=== PATIENT | male | born 1945 | race Caucasian/White ===

== ENCOUNTER → 2020-07-14 | Day surgery (SDC) | payer OTHER ==
[~2020-07-14] VITALS: Ht 165.1 cm; Wt 86.2 kg
[~2020-07-14] MED LIST: ACET325T9 PO; ASCO500C9 PO; BACITRACIN 50,000 UNIT in IV NORMAL SALINE 500ML BAG 500 ML IRR ONE; BUPIVACAINE-EPI 0.5%-1:200000 MPF 30 ML VIAL. INJ ONE; CHLORHEXIDINE 0.12% 15 ML MOUTHWASH. ONE; DEXAMETHASONE SOD PHOS 4 MG/ML VIAL ONE; DULO60CA6 PO; FERR325T14 PO; GELATIN SPONGE SIZE 100. ONE; GELATIN SPONGE SIZE 12-7MM SPONGE. ONE; HYDR-2761 PO; HYDROcodone/APAP 5/325MG 1 TAB TABLET PO ONE; HYDROmorphone 2 MG/ML VIAL IV PRN; IV RINGERS,LACTATED 1000ML 1,000 ML IV SCH; LEVO150T5 PO; LIDOCAINE 1% PF 2 ML VIAL. ID PRN; LIDOCAINE 2% PF 5 ML VIAL. ONE; MIRT30TA3 PO; MORPHINE SULFATE 2 MG/ML VIAL. IV PRN; ONDANSETRON PF 4 MG/2 ML VIAL. ONE; PANT20TA2 PO; PEG15DRO4 OD; PHENYLEPHRINE in 0.9% NACL PF 1 MG/10 ML SYRINGE. IV ONE; PROCHLORPERAZINE 10 MG/2 ML VIAL. IV PRN; PROPOFOL 10 MG/ML (20ML) VIAL. IV ONE; ROCURONIUM 50 MG/5 ML VIAL. ONE; SUCR1TAB PO; TAMS0.4C97 PO; TRAZ-118 PO; VASOPRESSIN 20 UNIT/ML VIAL. ONE; ZIPR40CA2 PO; ePHEDrine PF IN SALINE 50 MG/10 ML SYRINGE. IV ONE; fentaNYL PF VIAL 100 MCG/2 ML VIAL IV PRN; fentaNYL PF VIAL 100 MCG/2 ML VIAL ONE
--- NOTE | 2020-07-14 14:13 | PDOC4 ---
OPERATIVE NOTE Date: Date: Jul 14, 2020 Pre-Op Diagnosis: CAD DM HTN Carious non restorable teeth # 2, 12,13,15,23,24,25,26,30 Failing, Non restorable implants # $, 6, 11, 20, 21, 28 bilateral mandibular cameron Post-Op Diagnosis: same Procedure Performed: Surgical removal of Carious non restorable teeth # 2, 12,13,15,23,24,25,26,30 Failing, Non restorable implants # $, 6, 11, 20, 21, 28 Alveoloplasty in all four quadrants UR, UL, LL, LR bilateral mandibular cameron Surgeon: devang Anesthesia Type: mcnitt Blood Loss: 50 Specimans Obtained: none teeth and implants disposed of in OR Findings: Carious non restorable teeth # 2, 12,13,15,23,24,25,26,30 Failing, Non restorable implants # $, 6, 11, 20, 21, 28 Alveoloplasty in all four quadrants UR, UL, LL, LR bilateral mandibular cameron Complications: none Operative Note: see dictation Surgical removal of Carious non restorable teeth # 2, 12,13,15,23,24,25,26,30 Failing, Non restorable implants # $, 6, 11, 20, 21, 28 Alveoloplasty in all four quadrants UR, UL, LL, LR bilateral mandibular cameron RAVI CABRALES DMD Jul 14, 2020 14:13
--- NOTE | 2020-07-14 14:43 | OP ---
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 ATTENDING PHYSICIAN: Wesley Cabrales DMD PREOPERATIVE DIAGNOSES: Asthma; hypothyroidism; diabetes; chronic obstructive pulmonary disease; hypertension and caries of nonrestorable teeth and implants, teeth numbers 2, 12, 13, 15, 23, 24, 25, 26 and 30 and failing implants numbers 4, 6, 11, 20, 21 and 28 and he has bilateral mandibular cameron. POSTOPERATIVE DIAGNOSES: Asthma; hypothyroidism; diabetes; chronic obstructive pulmonary disease; hypertension and caries of nonrestorable teeth and implants, teeth numbers 2, 12, 13, 15, 23, 24, 25, 26 and 30 and failing implants numbers 4, 6, 11, 20, 21 and 28 and he has bilateral mandibular cameron. PROCEDURES PERFORMED: Removal of all aforementioned teeth and implants, teeth numbers 2, 12, 13, 15, 23, 24, 25, 26, 30 and failing implants 4, 6, 11, 20, 21 and 28 and alveoloplasty 4 quadrants upper right, upper left, lower right, lower left and surgical removal of bilateral mandibular cameron. BRIEF HISTORY: The patient is a 74-year-old gentleman who was sent to our clinic by the [place] for removal of all remaining failing dentition and failing implants. History and physical was performed and permit was obtained due to the patient's multiple comorbidities in the setting of care was escalated to the OR. DRAINS PLACED: None. SPECIMEN SENT: None. Teeth and implants were disposed off in the OR. COMPLICATIONS: None noted at the time of surgery. ESTIMATED BLOOD LOSS: Approximately 50 mL. OPERATIVE DESCRIPTION: After the history and physical was updated in the preoperative holding area, the patient was transported by the Anesthesia Service to the operating suite, placed in the supine position. General anesthesia was induced. The patient was then intubated with an oral intubation, secured to the upper left face without complication. The surgical timeout was performed. A moistened throat pack was placed. Oral cavity was lavaged. The patient was then prepped and draped in normal sterile fashion. A surgical timeout was initiated and all perioperative staff was in agreeance. Surgery began with administration of approximately 20 mL of 0.5% Marcaine, 1:200,000 epinephrine, an additional 5 mL were administered at the culmination of the procedure. A #15 blade was utilized to create a full thickness mucoperiosteal flap. This was reflected buccally in all 4 quadrants and lingually in the lower right and lower left quadrants. The periosteal and [place] elevators were utilized to reflect these flaps. The teeth were then were luxated, elevated and extracted without complication. Teeth numbers 2, 12, 13, 15, 23, 24, 25, 26 and 30 with rotary instrumentation and hand instruments without complication. The failing implants were removed with hand instruments and rotary instrumentation as needed with copious normal sterile saline. Alveoloplasty was performed in all 4 quadrants with all bony undercuts being removed with rongeur, bone file and curettage and copious normal sterile saline. The mandibular cameron were then removed with rotary instrumentation with copious normal sterile saline irrigation. The full thickness mucoperiosteal flaps were then reflected and lavaged under each flap thoroughly and Gelfoam was placed in extraction sites and oversewn with 3-0 chromic gut sutures in a running locked fashion. At the culmination of the procedure, the oral cavity was then lavaged and suctioned. The moistened throat pack was removed. An OG was passed and the stomach was decompressed. The patient was then returned to the care of Anesthesia where he was awakened and extubated without complication and transported to the PACU in stable condition. WESLEY CABRALES DMD DR: Juan Antonio JOB#: [id number] / [id number]
[2020-07-14 16:30] VITALS: BP 127/65
== END ==
LOC: SURG 09:25
PROVIDERS: ATTEND Dentist Oral and Maxillofacial Surgery
DX: K02.9 Dental caries, unspecified (principal); F43.0 Acute stress reaction; I25.10 Atherosclerotic heart disease of native coronary artery without angina pectoris; I10 Essential (primary) hypertension; E11.9 Type 2 diabetes mellitus without complications; J44.9 Chronic obstructive pulmonary disease, unspecified; E03.9 Hypothyroidism, unspecified; F17.210 Nicotine dependence, cigarettes, uncomplicated; Z79.899 Other long term (current) drug therapy
CPT/HCPCS: 41899; A7015; J0690; J1100; J2370; J2405; J2704; J3010; J3490; J7040; J7120

== ENCOUNTER 2021-08-16 03:55 | Inpatient (IN) | payer OTHER ==
[~2021-08-16] VITALS: Ht 167.6 cm; Wt 77.2 kg
[~2021-08-16 03:55] MED LIST changes: -BACITRACIN 50,000 UNIT in IV NORMAL SALINE 500ML BAG 500 ML IRR ONE; -BUPIVACAINE-EPI 0.5%-1:200000 MPF 30 ML VIAL. INJ ONE; -CHLORHEXIDINE 0.12% 15 ML MOUTHWASH. ONE; -DEXAMETHASONE SOD PHOS 4 MG/ML VIAL ONE; -DULO60CA6 PO; +DULO60CA7 PO; -GELATIN SPONGE SIZE 100. ONE; -GELATIN SPONGE SIZE 12-7MM SPONGE. ONE; -HYDROcodone/APAP 5/325MG 1 TAB TABLET PO ONE; -HYDROmorphone 2 MG/ML VIAL IV PRN; -IV RINGERS,LACTATED 1000ML 1,000 ML IV SCH; -LIDOCAINE 1% PF 2 ML VIAL. ID PRN; -LIDOCAINE 2% PF 5 ML VIAL. ONE; +MIRT-8 PO; -MIRT30TA3 PO; -MORPHINE SULFATE 2 MG/ML VIAL. IV PRN; -ONDANSETRON PF 4 MG/2 ML VIAL. ONE; -PHENYLEPHRINE in 0.9% NACL PF 1 MG/10 ML SYRINGE. IV ONE; -PROCHLORPERAZINE 10 MG/2 ML VIAL. IV PRN; -PROPOFOL 10 MG/ML (20ML) VIAL. IV ONE; -ROCURONIUM 50 MG/5 ML VIAL. ONE; -VASOPRESSIN 20 UNIT/ML VIAL. ONE; -ePHEDrine PF IN SALINE 50 MG/10 ML SYRINGE. IV ONE; -fentaNYL PF VIAL 100 MCG/2 ML VIAL IV PRN; -fentaNYL PF VIAL 100 MCG/2 ML VIAL ONE
[2021-08-16 03:56] VITALS: BP 122/69
[2021-08-16] MEDS ORDERED: [UNRECOGNIZED DRUG - OTHER] PR (04:31)
[2021-08-16] MEDS ORDERED: BISA10SU4 PO (04:31)
[2021-08-16] MEDS ORDERED: CEPH500T PO (04:31)
[2021-08-16] MEDS ORDERED: LEVO125T PO (04:31)
[2021-08-16] MEDS ORDERED: LOPE2TAB27 PO (04:31)
[2021-08-16] MEDS ORDERED: GUAI237L83 PO (04:31)
[2021-08-16] MEDS ORDERED: MAGN400O7 PO (04:31)
[2021-08-16] MEDS ORDERED: ONDANSETRON PF 4 MG/2 ML VIAL. IV PRN (05:30)
[2021-08-16] MEDS ORDERED: ACETAMINOPHEN 325 MG SUPP.RECT. PR PRN (05:30)
[2021-08-16] MEDS ORDERED: MORPHINE SULFATE 2 MG/ML INJ. IVP PRN (05:30)
[2021-08-16] MEDS ORDERED: OLANZapine IM 10 MG VIAL. IM ONE (05:30)
[2021-08-16] MEDS: PANTOPRAZOLE SODIUM IV DRIP 80 MG in IV NORMAL SALINE 100ML 100 ML IV SCH ×2 (05:51→14:54)
[2021-08-16] MEDS: IV RINGERS,LACTATED 1000ML 1,000 ML IV SCH ×2 (05:52→20:37)
[2021-08-16 06:22] VITALS: BP 122/65
--- NOTE | 2021-08-16 06:38 | NUR ---
Pharmacy Medication Review S: Consulted for medication review re: C.diff Risk Assessment score of 5 O: RANDALL PLUMMER is a 76 year old with: Previous C.diff infection: No Previous hospitalization: Within 60 days Recent antibiotics: Within 30 days Use of gastric acid suppressor: No Transfer from [place]/[facility]: Yes Current antibiotic regimen: NONE Current acid suppression regimen: PPI GTT A: Patient has been identified as having risk factors for C.diff infection as noted above. P: ABX DE-ESCALATION RECOMMENDED: NO ANTIBIOTIC PROBIOTIC ORDERED: N/A PPI CHANGED TO [id number]: PT HAS GI BLEED, ON PPI GTT [facility], 08/16/21 [id number]
[2021-08-16] MEDS ORDERED: C.DIFF MED SCREEN BY RX. MC ONE (06:45)
--- NOTE | 2021-08-16 08:25 | PDOC1 ---
History and Physical Date of Admission Date of Admission DATE: 08/16/21 TIME: 08:22 Source Source: Chart review, Patient History of Present Illness History of Present Illness Mr. Salazar transferred here from [facility] for vomting blood. He was recently admit there 07/22 for same, DC after one day. Yestery, he had copious amount of vomiting, but one large blood vomting, better this AM hgb 9.2 there before DC, transfer here on PPI drip. Past Medical History Cardiovascular: HTN GI: GERD, GI bleed Psych: Bipolar, Depression, Other Renal/: No pertinent hx Past Surgical History Past Surgical History: No pertinent history Family History Family History: No Significant, Other Social History Smoke: No ALCOHOL: rare Drugs: None Current Medications Current Medications Current Medications Ondansetron HCl (Zofran) 4 mg PRN Q6HRS PRN IV NAUSEA/VOMITING; Start 08/16/21 at 05:30 Olanzapine (ZyPREXA IM) 2.5 mg 1X ONCE IM Last administered on 08/16/21at 05:49; Start 08/16/21 at 05:30; Stop 08/16/21 at 05:34; Status DC Morphine Sulfate (Morphine Sulfate) 2 mg PRN Q3HRS PRN IVP PAIN; Start at 05:30 Acetaminophen (Tylenol Supp) 325 mg PRN Q6HRS PRN MS MILD PAIN / TEMP > 100.3'F; Start 08/16/21 at 05:30 Pantoprazole Sodium 80 mg/ Sodium Chloride 100 ml @ 10 mls/hr Q10H IV Last administered on 08/16/21at 05:51; Start 08/16/21 at 05:30 Ringer's Solution 1,000 ml @ 75 mls/hr [id number] IV Last administered on 08/16/21at 05:52; Start 08/16/21 at 05:30 Pharmacy Consult (C.diff Med Screen By Rx) 1 each 1X ONCE MC ; Start 08/16/21 at 06:45; Stop 08/16/21 at 06:46; Status Cancel Active Scripts Active Reported Robitussin Cough-Chest Dm Liq (Guaifenesin/Dextromethorphan) 237 Ml Liquid 237 Ml PO PRN Q4HRS PRN [Phosphate Enema] MS PRN DAILY PRN Milk Of Magnesia (Magnesium Hydroxide) 400 Mg/5 Ml Oral.susp 400 Mg PO PRN DAILY PRN Loperamide (Loperamide Hcl) 2 Mg Tablet 1 Tab PO Q4HRS 30 Days Bisacodyl 10 Mg Supp.rect 30 Ml PO PRN DAILY PRN Cephalexin 500 Mg Tablet 1,000 Mg PO BID Synthroid (Levothyroxine Sodium) 125 Mcg Tablet 1 Tab PO DAILY Vitamin C (Ascorbic Acid) 500 Mg Capsule 1,000 Mg PO DAILY Tylenol (Acetaminophen) 325 Mg Tablet 650 Mg PO PRN Q4-6HRS PRN Trazodone Hcl 50 Mg Tablet 25 Mg PO HS Flomax (Tamsulosin Hcl) 0.4 Mg Cap.er.24h 0.8 Mg PO DAILY Sucralfate 1 Gm Tablet 1 Gm PO TID Protonix (Pantoprazole Sodium) 20 Mg Tablet.dr 40 Mg PO BID Mirtazapine 30 Mg Tablet 1 Tab PO QHS Geodon (Ziprasidone Hcl) 40 Mg Capsule 60 Mg PO BID Ferrous Sulfate 325 Mg Tablet 325 Mg PO DAILY Cymbalta (Duloxetine Hcl) 60 Mg Capsule.dr 60 Mg PO DAILY Artificial Tears Drops (Peg 400/Hypromellose/Glycerin) 15 Ml Drops 1 Drop OD QID 30 Days Allergies Allergies: Coded Allergies: hydrochlorothiazide (Verified Allergy, Unknown, 08/16/21) ROS General: No: Chills, Night Sweats, Fatigue, Malaise, Appetite, Other PSYCHOLOGICAL ROS: No: Anxiety, Behavioral Disorder, Concentration difficultie, Decreased libido, Depression, Disorientation, Hallucinations, Hostility, Irritablity, Memory difficulties, Mood Swings, Obsessive thoughts, Physical abuse, Sexual abuse, Sleep disturbances, Suicidal ideation, Other Eyes: No Blurry vision, No Decreased vision, No Double vision, No Dry eyes, No Excessive tearing, No Eye Pain, No Itchy Eyes, No Loss of vision, No Photophobia, No Scotomata, No Uses contacts, No Uses glasses, No Other HEENT: No: Heacaches, Visual Changes, Hearing change, Nasal congestion, Nasal discharge, Oral lesions, Sinus pain, Sore Throat, Epistaxis, Sneezing, Snoring, Tinnitus, Vertigo, Vocal changes, Other Respiratory: No: Cough, Hemoptysis, Orthopnea, Pleuritic Pain, Shortness of breath, SOB with excertion, Sputum Changes, Stridor, Tachypnea, Wheezing, Other Cardiovascular: No Chest Pain, No Palpitations, No Orthopnea, No Paroxysmal Noc. Dyspnea, No Edema, No Lt Headedness, No Other Gastrointestinal: Yes Nausea, Yes Abdominal Pain, Yes Other (hematemesiss) Genitourinary: No Dysuria, No Frequency, No Incontinence, No Hematuria, No Retention, No Discharge, No Urgency, No Pain, No Flank Pain, No Other, No , No , No , No , No , No , No Musculoskeletal: No Gait Disturbance, No Joint Pain, No Joint Stiffness, No Joint Swelling, No Muscle Pain, No Muscular Weakness, No Pain In:, No Swelling In:, No Other Neurological: No Behavorial Changes, No Bowel/Bladder ControlChng, No Confusion, No Dizziness, No Headaches, No Impaired Coord/balance, No Memory Loss, No Numbness/Tingling, No Seizures, No Speech Problems, No Tremors, No Visual Changes, No Weakness, No Other Skin: Yes Dry Skin; No Eczema, No Hair Changes, No Lumps, No Mole Changes, No Mottling, No Nail Changes, No Pruritus, No Rash, No Skin Lesion Changes, No Other, No Acne Physical Exam General: Alert, Cooperative, No acute distress, Other (oriented 3.4, ) Lungs: Clear to auscultation Heart: S1S2 Extremities: No edema, Normal pulses Skin: No rashes Neuro: Normal tone Psych/Mental Status: Mood NL Vitals Vitals Vital Signs Date Time Temp Pulse Resp B/P (MAP) Pulse Ox O2 Delivery O2 Flow Rate FiO2 08/16/21 06:35 Room Air 08/16/21 06:22 98.4 100 18 122/65 (84) 94 98.4 VTE Prophylaxis Ordered VTE Prophylaxis Devices: No VTE Pharmacological Prophylaxi: Contraindicated Assessment/Plan Assessment/Plan acute blood loss anemia upper GI bleed bipolar disorder, cogntive decline, depression and anxiety care home resident full code Justifications for Admission Other Justification BERNARD BUSBY MD Aug 16, 2021 08:25
[2021-08-16 09:00] LABS: BASO # 0.1 x10^3/uL (0.0-0.2); BASO % 1 % (0-3); EOS # 0.1 x10^3/uL (0.0-0.7); EOS % 1 % (0-3); HEMOGLOBIN 8.8 g/dL (13.0-17.5); LYMPH # 1.4 x10^3/uL (1.0-4.8); LYMPH % 11 % (24-48); MEAN CORPUSCULAR HEMOGLOBIN 30 pg (25-35); MEAN CORPUSCULAR HGB CONC 33 g/dL (31-37); MEAN CORPUSCULAR VOLUME 93 fL (79-100); MONO # 0.6 x10^3/uL (0.0-1.1); MONO % 4 % (0-9); NEUT # 11.1 x10^3/uL (1.8-7.7); NEUT % 84 % (31-73); PLATELET COUNT 341 x10^3/uL (140-400); RED BLOOD COUNT 2.92 x10^6/uL (4.30-5.70); RED CELL DISTRIBUTION WIDTH 14.1 % (11.5-14.5); WHITE BLOOD COUNT 13.3 x10^3/uL (4.0-11.0)
[2021-08-16] MEDS ORDERED: FERROUS SULFATE 325 MG TABLET. PO SCH (09:00)
[2021-08-16 11:00] VITALS: BP 119/63
--- NOTE | 2021-08-16 12:11 | PDOC2 ---
CONSULT Date of Consult Date of Consult DATE: 08/16/21 TIME: 12:03 Reason for Consult Reason for Consult: Acute blood loss anemia/Hematemesis Past Medical History Cardiovascular: HTN GI: GERD, GI bleed Psych: Bipolar, Depression, Other Renal/: No pertinent hx Past Surgical History Past Surgical History: No pertinent history Family History Family History: No Significant, Other Social History No ALCOHOL: rare Drugs: None Current Medications Current Medications Current Medications Ondansetron HCl (Zofran) 4 mg PRN Q6HRS PRN IV NAUSEA/VOMITING; Start 08/16/21 at 05:30 Olanzapine (ZyPREXA IM) 2.5 mg 1X ONCE IM Last administered on 08/16/21at 05:4 9; Start 08/16/21 at 05:30; Stop 08/16/21 at 05:34; Status DC Morphine Sulfate (Morphine Sulfate) 2 mg PRN Q3HRS PRN IVP PAIN; Start 08/16/21 at 05:30 Acetaminophen (Tylenol Supp) 325 mg PRN Q6HRS PRN MD MILD PAIN / TEMP > 100.3'F; Start 08/16/21 at 05:30 Pantoprazole Sodium 80 mg/ Sodium Chloride 100 ml @ 10 mls/hr Q10H IV Last administered on 08/16/21at 05:51; Start 08/16/21 at 05:30 Ringer's Solution 1,000 ml @ 75 mls/hr [id number] IV Last administered on 08/16/21at 05:52; Start 08/16/21 at 05:30 Pharmacy Consult (C.diff Med Screen By Rx) 1 each 1X ONCE MC ; Start 08/16/21 at 06:45; Stop 08/16/21 at 06:46; Status Cancel Ferrous Sulfate (Feosol) 325 mg DAILY PO ; Start 08/16/21 at 09:00 Levothyroxine Sodium (Synthroid) 125 mcg DAILY06 PO ; Start 08/16/21 at 09:00 Sucralfate (Carafate) 1 gm TID@1000,1400,2200 PO ; Start 08/16/21 at 10:00 Tamsulosin HCl (Flomax) 0.8 mg DAILY PO ; Start 08/16/21 at 09:00 Trazodone HCl (Desyrel) 25 mg HS PO ; Start 08/16/21 at 21:00 Duloxetine HCl (Cymbalta) 60 mg DAILY PO ; Start 08/16/21 at 09:00 Active Scripts Active Reported Robitussin Cough-Chest Dm Liq (Guaifenesin/Dextromethorphan) 237 Ml Liquid 237 Ml PO PRN Q4HRS PRN [Phosphate Enema] MD PRN DAILY PRN Milk Of Magnesia (Magnesium Hydroxide) 400 Mg/5 Ml Oral.susp 400 Mg PO PRN DAILY PRN Loperamide (Loperamide Hcl) 2 Mg Tablet 1 Tab PO Q4HRS 30 Days Bisacodyl 10 Mg Supp.rect 30 Ml PO PRN DAILY PRN Cephalexin 500 Mg Tablet 1,000 Mg PO BID Synthroid (Levothyroxine Sodium) 125 Mcg Tablet 1 Tab PO DAILY Vitamin C (Ascorbic Acid) 500 Mg Capsule 1,000 Mg PO DAILY Tylenol (Acetaminophen) 325 Mg Tablet 650 Mg PO PRN Q4-6HRS PRN Trazodone Hcl 50 Mg Tablet 25 Mg PO HS Flomax (Tamsulosin Hcl) 0.4 Mg Cap.er.24h 0.8 Mg PO DAILY Sucralfate 1 Gm Tablet 1 Gm PO TID Protonix (Pantoprazole Sodium) 20 Mg Tablet.dr 40 Mg PO BID Mirtazapine 30 Mg Tablet 1 Tab PO QHS Geodon (Ziprasidone Hcl) 40 Mg Capsule 60 Mg PO BID Ferrous Sulfate 325 Mg Tablet 325 Mg PO DAILY Cymbalta (Duloxetine Hcl) 60 Mg Capsule.dr 60 Mg PO DAILY Artificial Tears Drops (Peg 400/Hypromellose/Glycerin) 15 Ml Drops 1 Drop OD QID 30 Days Allergies Allergies: Coded Allergies: hydrochlorothiazide (Verified Allergy, Unknown, 08/16/21) Vitals VITALS Vital Signs Date Time Temp Pulse Resp B/P (MAP) Pulse Ox O2 Delivery O2 Flow Rate FiO2 08/16/21 06:35 Room Air 08/16/21 06:22 98.4 100 18 122/65 (84) 94 98.4 Labs Labs Laboratory Tests Test 08/16/21 08:45 White Blood Count 13.3 x10^3/uL (4.0-11.0) Red Blood Count 2.92 x10^6/uL (4.30-5.70) Hemoglobin 8.8 g/dL (13.0-17.5) Hematocrit 27.0 % (39.0-53.0) Mean Corpuscular Volume 93 fL (79-100) Mean Corpuscular Hemoglobin 30 pg (25-35) Mean Corpuscular Hemoglobin Concent 33 g/dL (31-37) Red Cell Distribution Width 14.1 % (11.5-14.5) Platelet Count 341 x10^3/uL (140-400) Neutrophils (%) (Auto) 84 % (31-73) Lymphocytes (%) (Auto) 11 % (24-48) Monocytes (%) (Auto) 4 % (0-9) Eosinophils (%) (Auto) 1 % (0-3) Basophils (%) (Auto) 1 % (0-3) Neutrophils # (Auto) 11.1 x10^3/uL (1.8-7.7) Lymphocytes # (Auto) 1.4 x10^3/uL (1.0-4.8) Monocytes # (Auto) 0.6 x10^3/uL (0.0-1.1) Eosinophils # (Auto) 0.1 x10^3/uL (0.0-0.7) Basophils # (Auto) 0.1 x10^3/uL (0.0-0.2) CO-Sdi-S-Type Natriuretic Peptide 41 pg/mL (0-449) Laboratory Tests Test 08/16/21 08:45 White Blood Count 13.3 x10^3/uL (4.0-11.0) Red Blood Count 2.92 x10^6/uL (4.30-5.70) Hemoglobin 8.8 g/dL (13.0-17.5) Hematocrit 27.0 % (39.0-53.0) Mean Corpuscular Volume 93 fL (79-100) Mean Corpuscular Hemoglobin 30 pg (25-35) Mean Corpuscular Hemoglobin Concent 33 g/dL (31-37) Red Cell Distribution Width 14.1 % (11.5-14.5) Platelet Count 341 x10^3/uL (140-400) Neutrophils (%) (Auto) 84 % (31-73) Lymphocytes (%) (Auto) 11 % (24-48) Monocytes (%) (Auto) 4 % (0-9) Eosinophils (%) (Auto) 1 % (0-3) Basophils (%) (Auto) 1 % (0-3) Neutrophils # (Auto) 11.1 x10^3/uL (1.8-7.7) Lymphocytes # (Auto) 1.4 x10^3/uL (1.0-4.8) Monocytes # (Auto) 0.6 x10^3/uL (0.0-1.1) Eosinophils # (Auto) 0.1 x10^3/uL (0.0-0.7) Basophils # (Auto) 0.1 x10^3/uL (0.0-0.2) TA-Xol-W-Type Natriuretic Peptide 41 pg/mL (0-449) Assessment/Plan Assessment/Plan Hematemesis-recurrent, UGi source likely. Hay's, PUD, malilgnancy, varices, and/or erosive GERD in differential Plan serial Hgs PPI therapy EGD if POA/patient are willing to proceed. Otherwise return patient to facility for comfort measures and no repeat admission Full note dictated VINEET HINES MD Aug 16, 2021 12:11
--- NOTE | 2021-08-16 13:12 | CONS ---
DATE OF CONSULTATION: 08/16/2021 GASTROENTEROLOGY CONSULTATION REASON FOR CONSULTATION: Recurrent coffee-ground emesis. HISTORY OF PRESENT ILLNESS: This is a 76-year-old male with past medical history significant for hypertension, bipolar depression, who was admitted to [facility] and then transferred to [place] for recurrent vomiting. The patient has been noted to have an episode of bleeding back in and was inpatient for day, was unable to be transferred to [facility] due to lack of available bed, no apparent followup was coordinated. The patient did not wish to have any additional studies. He has been readmitted for the same issue. He is seen today. The patient denies any NSAID use or anticoagulation. Denies any history of ulcers, abdominal pain, weight loss and does not wish to have additional studies done. PAST MEDICAL HISTORY: Hypertension, GERD, reported history of GI bleed, bipolar depression. PAST SURGICAL HISTORY: Noncontributory. FAMILY HISTORY: Noncontributory. SOCIAL HISTORY:. He is nonsmoker, nondrinker. MEDICATIONS: Presently include Zofran, Zyprexa, morphine, Tylenol, pantoprazole. ALLERGIES: HYDROCHLOROTHIAZIDE. REVIEW OF SYSTEMS: Per records not obtainable due to his schizophrenia and bipolar. PHYSICAL EXAMINATION: VITAL SIGNS: Temperature is 98.4, pulse 100, respiratory rate 18, blood pressure is 122/65. HEENT: Reveals normocephalic, atraumatic head. Pupils and extraocular muscles not tested. Sclerae anicteric. NECK: Supple. LUNGS: Clear. CARDIOVASCULAR: Reveals an S1, S2, without S3, S4 or appreciable murmur. ABDOMEN: Reveals a soft abdomen, normal bowel sounds, without appreciable hepatosplenomegaly. EXTREMITIES: Reveals no cyanosis, clubbing or edema. LABORATORY DATA: Hemoglobin today is 8.8, hematocrit 27, white count 13.3, platelet count 341,000. IMPRESSION: Coffee-ground emesis recurrent, upper gastroenterology source is likely; peptic ulcer disease; malignancy; varices, Hay's, achalasia are all the differential. Discussed upper endoscopy with the patient including the risk of hemorrhage and perforation and he states he does not want to have any studies done. I am unclear of the patient is his own power of trust and estates attorney. If he is in fact his own power of trust and estates attorney then patient should not be readmitted to the hospital. He does not wish to follow medical advice and wished that the facility ____ continues to send him, we would honor this request since the patient is refusing treatment. JUMANA DR: [place] TID: [id number] CC: Dr. Jordan
[2021-08-16] MEDS: LEVOTHYROXINE 125 MCG TABLET PO SCH (13:28)
[2021-08-16] MEDS: TAMSULOSIN 0.4 MG CAP.ER.24H. PO SCH (13:28)
[2021-08-16] MEDS: SUCRALFATE 1 GM TABLET. PO SCH ×3 (13:28→20:36)
[2021-08-16] MEDS: DULoxetine HCL 30 MG CAPSULE.DR PO SCH (13:28)
[2021-08-16 13:50] LABS: HEMATOCRIT 25.5 % (39.0-53.0); HEMOGLOBIN 8.4 g/dL (13.0-17.5); RED BLOOD COUNT 2.73 x10^6/uL (4.30-5.70); RED CELL DISTRIBUTION WIDTH 14.3 % (11.5-14.5); WHITE BLOOD COUNT 10.6 x10^3/uL (4.0-11.0)
[2021-08-16 15:00] VITALS: BP 118/51
[2021-08-16 19:14] VITALS: BP 153/63
[2021-08-16] MEDS: traZODone 50 MG TABLET. PO SCH (20:36)
[2021-08-16 22:33] VITALS: BP 114/52
[2021-08-17] VITALS (9 sets, daily range): BP systolic 100–143; BP diastolic 53–62
[2021-08-17] MEDS: PANTOPRAZOLE SODIUM IV DRIP 80 MG in IV NORMAL SALINE 100ML 100 ML IV SCH (00:46)
[2021-08-17 04:38] LABS: BASO # 0.1 x10^3/uL (0.0-0.2); BASO % 1 % (0-3); EOS # 0.7 x10^3/uL (0.0-0.7); EOS % 9 % (0-3); LYMPH # 2.1 x10^3/uL (1.0-4.8); LYMPH % 27 % (24-48); MEAN CORPUSCULAR HEMOGLOBIN 31 pg (25-35); MEAN CORPUSCULAR HGB CONC 34 g/dL (31-37); MEAN CORPUSCULAR VOLUME 92 fL (79-100); MONO # 0.6 x10^3/uL (0.0-1.1); MONO % 7 % (0-9); NEUT # 4.3 x10^3/uL (1.8-7.7); NEUT % 55 % (31-73); PLATELET COUNT 257 x10^3/uL (140-400); RED BLOOD COUNT 2.22 x10^6/uL (4.30-5.70); RED CELL DISTRIBUTION WIDTH 14.5 % (11.5-14.5); WHITE BLOOD COUNT 7.8 x10^3/uL (4.0-11.0)
[2021-08-17 04:42] LABS: CALCIUM 7.9 mg/dL (8.5-10.1); CREATININE 0.8 mg/dL (0.7-1.3); GFR 93.5; HEMATOCRIT 20.5 % (39.0-53.0); POTASSIUM 4.1 mmol/L (3.5-5.1)
[2021-08-17] MEDS: LEVOTHYROXINE 125 MCG TABLET PO SCH (06:49)
--- NOTE | 2021-08-17 09:23 | PDOC ---
Date of Service: DATE: 08/17/21 TIME: 09:12 Subjective: Subjective: "What!" Denies pain and bleeding. Objective: Objective: D/w nurse - unaware of any recurrent obvious bleeding, pt has been confused, remains unclear if pt has DPOA or if they are involved. Hgb drift to 7, has order for transfusion. Vital Signs: Vital Signs Date Time Temp Pulse Resp B/P (MAP) Pulse Ox O2 Delivery O2 Flow Rate FiO2 08/17/21 07:00 98.5 83 18 101/55 (70) 99 Room Air 98.5 Labs: Laboratory Tests Test 08/16/21 13:30 08/17/21 04:00 White Blood Count 10.6 x10^3/uL 7.8 x10^3/uL Red Blood Count 2.73 x10^6/uL 2.22 x10^6/uL Hemoglobin 8.4 g/dL 7.0 g/dL Hematocrit 25.5 % 20.5 % Mean Corpuscular Volume 93 fL 92 fL Mean Corpuscular Hemoglobin 31 pg 31 pg Mean Corpuscular Hemoglobin Concent 33 g/dL 34 g/dL Red Cell Distribution Width 14.3 % 14.5 % Platelet Count 302 x10^3/uL 257 x10^3/uL Neutrophils (%) (Auto) 55 % Lymphocytes (%) (Auto) 27 % Monocytes (%) (Auto) 7 % Eosinophils (%) (Auto) 9 % Basophils (%) (Auto) 1 % Neutrophils # (Auto) 4.3 x10^3/uL Lymphocytes # (Auto) 2.1 x10^3/uL Monocytes # (Auto) 0.6 x10^3/uL Eosinophils # (Auto) 0.7 x10^3/uL Basophils # (Auto) 0.1 x10^3/uL Sodium Level 140 mmol/L Potassium Level 4.1 mmol/L Chloride Level 107 mmol/L Carbon Dioxide Level 26 mmol/L Anion Gap 7 Blood Urea Nitrogen 15 mg/dL Creatinine 0.8 mg/dL Estimated GFR (Cockcroft-Gault) 93.5 Glucose Level 91 mg/dL Calcium Level 7.9 mg/dL PE: GEN: was asleep LUNGS: clear anteriorly HEART: RRR ABD: NABS, S/ND/NT NEURO/PSYCH: awakens when I call his name, gives one word answers, seems grumpy and drowsy A/P: Hematemesis - prior to arrival at [facility] Normocytic anemia - Hgb drifting Bipolar, cognitive decline -- Unclear if this is his baseline mental status. No recurrent bleeding per nurse. Dr. Cyr discussed EGD over the weekend - he declined. Since he's eating and has declined EGD, we'll stop PPI drip and change to PO. Reasonable to continue sucralfate. Transfusion ordered if he'll accept. Defer goals of care to primary; I am available to discuss w/ DPOA if needed. Justicifation of Admission Dx: Justifications for Admission: Justification of Admission Dx: Yes GINI CYR Aug 17, 2021 09:23
--- NOTE | 2021-08-17 12:37 | NUR ---
SW following. Discussed with Sherine (FAUSTINO), chart reviewed. Pt from home, room air, getting blood today. GI and Woundcare following. SW will continue to follow.
[2021-08-17] MEDS: TAMSULOSIN 0.4 MG CAP.ER.24H. PO SCH (12:40)
[2021-08-17] MEDS: DULoxetine HCL 30 MG CAPSULE.DR PO SCH (12:40)
[2021-08-17] MEDS: SUCRALFATE 1 GM TABLET. PO SCH ×3 (12:40→22:14)
[2021-08-17] MEDS: CYANOCOBALAMIN (VITAMIN B-12) 1,000 MCG/ML VIAL. IM SCH (12:42)
[2021-08-17] MEDS: IV RINGERS,LACTATED 1000ML 1,000 ML IV SCH ×2 (12:50→22:15)
--- NOTE | 2021-08-17 13:06 | NUR ---
Patient was explained about the need of a blood transfusion due to his critical Hgb was 7.0 and Hct was 20.5. Patient refused to sing blood transfusion consent and said he did not need blood transfusion. Patient WILLIAM Smith was contact and she gave a telephone consent for blood transfusion and Riki the charge nurse witnessed the consent via phone. One unit of PRBC was given to patient per doctor ordered.
--- NOTE | 2021-08-17 13:20 | PDOC ---
[employer] PROGRESS NOTE Date of Service DOS: DATE: 08/17/21 TIME: 13:19 Chief Complaint Chief Complaint acute blood loss anemia upper GI bleed bipolar disorder, cogntive decline, depression and anxiety History of Present Illness History of Present Illness 08/17/2021 Patient seen and examined Discussed with RN Chart reviewed Discussed with GI nurse practitioner Not sure who is DPOA is but GI would like to consider an endoscopy He is a alf resident Hemoglobin dropped to 7 Vitals/I&O Vitals/I&O: Vital Signs Date Time Temp Pulse Resp B/P (MAP) Pulse Ox O2 Delivery O2 Flow Rate FiO2 08/17/21 12:16 98.4 65 18 140/60 98.4 08/17/21 11:12 99 Room Air I & O 08/16/21 08/16/21 08/17/21 15:00 23:00 07:00 Intake Total 180 ml 1180 ml 100 ml Balance 180 ml 1180 ml 100 ml Physical Exam General: Cooperative, No acute distress, Other (oriented 3.4, ) Extremities: No edema, Normal pulses Skin: No rashes Labs Labs: Laboratory Tests Test 08/16/21 13:30 08/17/21 04:00 White Blood Count 10.6 x10^3/uL (4.0-11.0) 7.8 x10^3/uL (4.0-11.0) Red Blood Count 2.73 x10^6/uL (4.30-5.70) 2.22 x10^6/uL (4.30-5.70) Hemoglobin 8.4 g/dL (13.0-17.5) 7.0 g/dL (13.0-17.5) Hematocrit 25.5 % (39.0-53.0) 20.5 % (39.0-53.0) Mean Corpuscular Volume 93 fL (79-100) 92 fL (79-100) Mean Corpuscular Hemoglobin 31 pg (25-35) 31 pg (25-35) Mean Corpuscular Hemoglobin Concent 33 g/dL (31-37) 34 g/dL (31-37) Red Cell Distribution Width 14.3 % (11.5-14.5) 14.5 % (11.5-14.5) Platelet Count 302 x10^3/uL (140-400) 257 x10^3/uL (140-400) Neutrophils (%) (Auto) 55 % (31-73) Lymphocytes (%) (Auto) 27 % (24-48) Monocytes (%) (Auto) 7 % (0-9) Eosinophils (%) (Auto) 9 % (0-3) Basophils (%) (Auto) 1 % (0-3) Neutrophils # (Auto) 4.3 x10^3/uL (1.8-7.7) Lymphocytes # (Auto) 2.1 x10^3/uL (1.0-4.8) Monocytes # (Auto) 0.6 x10^3/uL (0.0-1.1) Eosinophils # (Auto) 0.7 x10^3/uL (0.0-0.7) Basophils # (Auto) 0.1 x10^3/uL (0.0-0.2) Sodium Level 140 mmol/L (136-145) Potassium Level 4.1 mmol/L (3.5-5.1) Chloride Level 107 mmol/L (98-107) Carbon Dioxide Level 26 mmol/L (21-32) Anion Gap 7 (6-14) Blood Urea Nitrogen 15 mg/dL (8-26) Creatinine 0.8 mg/dL (0.7-1.3) Estimated GFR (Cockcroft-Gault) 93.5 Glucose Level 91 mg/dL (70-99) Calcium Level 7.9 mg/dL (8.5-10.1) Iron Level 22 ug/dL (65-175) Total Iron Binding Capacity 236 ug/dL (250-450) Iron Saturation 9 % (15-34) Vitamin B12 Level 273 pg/mL (247-911) Assessment and Plan Assessmemt and Plan acute blood loss anemia upper GI bleed bipolar disorder, cogntive decline, depression and anxiety Plan Continue proton pump inhibitors GI considering endoscopy if we can figure out who the DPOA is to sign Home meds Trend DVT prophylaxis Full code Appreciate GI input Comment Review of Relevant I have reviewed the following items carisa (where applicable) has been applied. Medications: Current Medications Medications (Trade) Dose Ordered Sig/Tracee Route PRN Reason Start Time Stop Time Status Last Admin Dose Admin Trazodone HCl (Desyrel) 25 mg HS PO 08/16/21 21:00 08/16/21 20:36 Cyanocobalamin (Vitamin B-12 Inj) 1,000 mcg DAILY IM 08/17/21 12:30 08/17/21 12:42 Justifications for Admission Other Justification FRANCISCO JAVIER GARDUNO III DO Aug 17, 2021 13:20
[2021-08-17 13:43] LABS: HEMATOCRIT 24.4 % (39.0-53.0); HEMOGLOBIN 8.2 g/dL (13.0-17.5)
--- NOTE | 2021-08-17 15:13 | NUR ---
Wound Care: Patient seen per wound care consult. There are appears to be an area on the lower anterior abdomen which there was at one time an opening possibly a supra pubic catheter. Patient unable to give any useful information to this area. Upon assessment this area has no depth to it and it is no longer open. Patient continues to ramble but unable to give a good history of any medical procedures or diagnosis. No other wounds noted. Wound care will sign off at this time. Please re consult regarding any changes.
[2021-08-17] MEDS: FERROUS SULFATE 325 MG TABLET. PO SCH (22:14)
[2021-08-17] MEDS: traZODone 50 MG TABLET. PO SCH (22:14)
[2021-08-18 03:40] VITALS: BP_SYST 130; BP_SYST 133; BP_DIAS 60; BP_DIAS 70
[2021-08-18] MEDS: PANTOPRAZOLE 40 MG TABLET.DR. PO SCH (06:03)
[2021-08-18] MEDS: LEVOTHYROXINE 125 MCG TABLET PO SCH (06:03)
[2021-08-18 07:00] VITALS: BP_SYST 122; BP_SYST 142; BP_DIAS 67; BP_DIAS 81
[2021-08-18 08:00] LABS: HEMATOCRIT 26.5 % (39.0-53.0); HEMOGLOBIN 8.7 g/dL (13.0-17.5); RED BLOOD COUNT 2.81 x10^6/uL (4.30-5.70); RED CELL DISTRIBUTION WIDTH 14.4 % (11.5-14.5); WHITE BLOOD COUNT 6.4 x10^3/uL (4.0-11.0)
[2021-08-18] MEDS: CYANOCOBALAMIN (VITAMIN B-12) 1,000 MCG/ML VIAL. IM SCH (08:24)
[2021-08-18] MEDS: DULoxetine HCL 30 MG CAPSULE.DR PO SCH (08:25)
[2021-08-18] MEDS: TAMSULOSIN 0.4 MG CAP.ER.24H. PO SCH (08:25)
[2021-08-18] MEDS: FERROUS SULFATE 325 MG TABLET. PO SCH ×2 (08:25→19:50)
--- NOTE | 2021-08-18 09:48 | PDOC ---
Date of Service: DATE: 08/18/21 TIME: 09:44 Subjective: Subjective: Eyes are burning, needs eye drops. Breakfast "was great." No vomiting or bleeding. Little upper abdominal discomfort. I asked if he'd ever consider having an EGD - he says yes. I asked him what changed his mind and he said "I don't know, I must have been mad." Objective: Vital Signs: Vital Signs Date Time Temp Pulse Resp B/P (MAP) Pulse Ox O2 Delivery O2 Flow Rate FiO2 08/18/21 07:00 91.8 68 18 122/67 (85) 96 Room Air 91.8 Labs: Laboratory Tests Test 08/17/21 13:35 08/18/21 07:25 Hemoglobin 8.2 g/dL 8.7 g/dL Hematocrit 24.4 % 26.5 % Mean Corpuscular Hemoglobin Concent 34 g/dL 33 g/dL White Blood Count 6.4 x10^3/uL Red Blood Count 2.81 x10^6/uL Mean Corpuscular Volume 94 fL Mean Corpuscular Hemoglobin 31 pg Red Cell Distribution Width 14.4 % Platelet Count 123 x10^3/uL PE: GEN: NAD LUNGS: CTAB HEART: RRR ABD: mild epigastric discomfort, soft, BS+ NEURO/PSYCH: more communicative today A/P: Hematemesis - prior to arrival at [facility] CHRIS/ACD, borderline low B12 - Hgb improved w/ transfusions Bipolar, cognitive decline -- Hgb improved, no recurrent bleeding, tolerating diet. Continue PPI, iron, B12. Attempted to call Fawn THOMAS at 10:59 a.m. - no answer, left message. Justicifation of Admission Dx: Justifications for Admission: Justification of Admission Dx: Yes GINI CYR Aug 18, 2021 09:48
[2021-08-18] MEDS: SUCRALFATE 1 GM TABLET. PO SCH ×3 (10:14→19:50)
--- NOTE | 2021-08-18 10:15 | NUR ---
SW following. Discussed with RN, pt actually from [facility] (verified), room air GI soft. GI and Wound care following. EGD planned for tomorrow. Pt will need a COVID test to return to facility. SW will continue to follow.
[2021-08-18] MEDS: IV RINGERS,LACTATED 1000ML 1,000 ML IV SCH (10:16)
[2021-08-18 11:00] VITALS: BP 124/80
[2021-08-18 15:00] VITALS: BP 105/58
--- NOTE | 2021-08-18 15:00 | PDOC ---
[employer] PROGRESS NOTE Date of Service DOS: DATE: 08/18/21 TIME: 14:59 Chief Complaint Chief Complaint acute blood loss anemia upper GI bleed bipolar disorder, cogntive decline, depression and anxiety History of Present Illness History of Present Illness 08/18/2021 No acute events overnight. Patient seen and examined bedside. Patient may have some dementia that is affecting his reason to make proper decisions. Will discuss closely with DPOA if patient wants to proceed with EGD tomorrow. N.p.o. at midnight for now until clarification of that. Hemoglobin stable today at 8.7. Patient's chart, labs, images were reviewed and discussed with RN 08/17/2021 Patient seen and examined Discussed with RN Chart reviewed Discussed with GI nurse practitioner Not sure who is DPOA is but GI would like to consider an endoscopy He is a custodial resident Hemoglobin dropped to 7 Vitals/I&O Vitals/I&O: Vital Signs Date Time Temp Pulse Resp B/P (MAP) Pulse Ox O2 Delivery O2 Flow Rate FiO2 08/18/21 11:00 98.3 71 18 124/80 (95) 97 Room Air 98.3 I & O 08/17/21 08/17/21 08/18/21 15:00 23:00 07:00 Intake Total 350 ml 180 ml 0 ml Balance 350 ml 180 ml 0 ml Physical Exam General: Cooperative, No acute distress, Other (oriented 3.4, ) Extremities: No edema, Normal pulses Skin: No rashes Labs Labs: Laboratory Tests Test 08/18/21 07:25 White Blood Count 6.4 x10^3/uL (4.0-11.0) Red Blood Count 2.81 x10^6/uL (4.30-5.70) Hemoglobin 8.7 g/dL (13.0-17.5) Hematocrit 26.5 % (39.0-53.0) Mean Corpuscular Volume 94 fL (79-100) Mean Corpuscular Hemoglobin 31 pg (25-35) Mean Corpuscular Hemoglobin Concent 33 g/dL (31-37) Red Cell Distribution Width 14.4 % (11.5-14.5) Platelet Count 123 x10^3/uL (140-400) Comment Review of Relevant I have reviewed the following items carisa (where applicable) has been applied. Medications: Current Medications Medications (Trade) Dose Ordered Sig/Tracee Route PRN Reason Start Time Stop Time Status Last Admin Dose Admin Pantoprazole Sodium (Protonix) 40 mg DAILYAC PO 08/18/21 07:30 08/18/21 06:03 Ferrous Sulfate (Feosol) 325 mg BID PO 08/17/21 21:00 08/18/21 08:25 Justifications for Admission Other Justification VIDYA GAMEZ MD Aug 18, 2021 15:00
[2021-08-18 18:50] VITALS: BP 113/63
[2021-08-18] MEDS: traZODone 50 MG TABLET. PO SCH (19:50)
[2021-08-18 23:26] VITALS: BP 123/65
[2021-08-19] MEDS: IV RINGERS,LACTATED 1000ML 1,000 ML IV SCH ×2 (00:10→07:49)
[2021-08-19 02:45] VITALS: BP 142/67
[2021-08-19] MEDS: LEVOTHYROXINE 125 MCG TABLET PO SCH (05:45)
[2021-08-19 06:07] LABS: HEMATOCRIT 24.8 % (39.0-53.0); HEMOGLOBIN 8.4 g/dL (13.0-17.5); RED BLOOD COUNT 2.69 x10^6/uL (4.30-5.70); RED CELL DISTRIBUTION WIDTH 14.3 % (11.5-14.5); WHITE BLOOD COUNT 7.9 x10^3/uL (4.0-11.0)
[2021-08-19 07:00] VITALS: BP 96/58
[2021-08-19] MEDS: PANTOPRAZOLE 40 MG TABLET.DR. PO SCH (07:30)
[2021-08-19] MEDS: SUCRALFATE 1 GM TABLET. PO SCH ×2 (07:50→13:18)
[2021-08-19] MEDS: CYANOCOBALAMIN (VITAMIN B-12) 1,000 MCG/ML VIAL. IM SCH (07:50)
[2021-08-19] MEDS: TAMSULOSIN 0.4 MG CAP.ER.24H. PO SCH (07:50)
[2021-08-19] MEDS: DULoxetine HCL 30 MG CAPSULE.DR PO SCH (07:50)
[2021-08-19] MEDS: FERROUS SULFATE 325 MG TABLET. PO SCH (07:50)
--- NOTE | 2021-08-19 09:11 | PDOC ---
Date of Service: DATE: 08/19/21 TIME: 09:07 Subjective: Subjective: Says he's fine. Objective: Objective: Refusing meds today. Vital Signs: Vital Signs Date Time Temp Pulse Resp B/P (MAP) Pulse Ox O2 Delivery O2 Flow Rate FiO2 08/19/21 08:00 Room Air 08/19/21 07:00 98.1 81 16 96/58 (71) 94 98.1 Labs: Laboratory Tests Test 08/19/21 02:40 White Blood Count 7.9 x10^3/uL Red Blood Count 2.69 x10^6/uL Hemoglobin 8.4 g/dL Hematocrit 24.8 % Mean Corpuscular Volume 92 fL Mean Corpuscular Hemoglobin 31 pg Mean Corpuscular Hemoglobin Concent 34 g/dL Red Cell Distribution Width 14.3 % Platelet Count 264 x10^3/uL PE: GEN: NAD LUNGS: CTAB HEART: RRR ABD: S/ND/NT NEURO/PSYCH: awake and alert, probably forgetful A/P: Hematemesis - no recurrence CHRIS/ACD, borderline low B12 - stable Bipolar, dementia -- Attempted to reach Fawn THOMAS yesterday - will try again today to discuss EGD. Justicifation of Admission Dx: Justifications for Admission: Justification of Admission Dx: Yes GINI CYR Aug 19, 2021 09:11
--- NOTE | 2021-08-19 09:48 | NUR ---
RN attempted to give morning medications and obtain Covid PCR from patient, patient refused.
[2021-08-19 11:00] VITALS: BP 101/62
--- NOTE | 2021-08-19 12:11 | PDOC ---
[employer] PROGRESS NOTE Date of Service DOS: DATE: 08/19/21 TIME: 12:08 Chief Complaint Chief Complaint acute blood loss anemia upper GI bleed bipolar disorder, cogntive decline, depression and anxiety History of Present Illness History of Present Illness 08/19/2021 No acute events overnight. Patient said he is fine. Still refusing some p.o. medications. Attempted to contact Sherine who is the DPOA and is the daughter of the patient. Unable to contact. Pending whether we can proceed with EGD. Will discuss with GI if patient can have procedure done as an outpatient. Patient's chart, labs, images were reviewed and discussed with RN. Patient apparently is from [facility]. 08/18/2021 No acute events overnight. Patient seen and examined bedside. Patient may have some dementia that is affecting his reason to make proper decisions. Will discuss closely with DPOA if patient wants to proceed with EGD tomorrow. N.p.o. at midnight for now until clarification of that. Hemoglobin stable today at 8.7. Patient's chart, labs, images were reviewed and discussed with RN 08/17/2021 Patient seen and examined Discussed with RN Chart reviewed Discussed with GI nurse practitioner Not sure who is DPOA is but GI would like to consider an endoscopy He is a snf resident Hemoglobin dropped to 7 Vitals/I&O Vitals/I&O: Vital Signs Date Time Temp Pulse Resp B/P (MAP) Pulse Ox O2 Delivery O2 Flow Rate FiO2 08/19/21 11:00 98.3 76 18 101/62 (75) 93 Room Air 98.3 I & O 08/18/21 08/18/21 08/19/21 15:00 23:00 07:00 Intake Total 300 ml Balance 300 ml Physical Exam General: Alert, Cooperative, No acute distress, Other (oriented 3.4, ) Heart: Regular rate Lungs: Clear Abdomen: Normal bowel sounds Extremities: No edema, Normal pulses Skin: No rashes Labs Labs: Laboratory Tests Test 08/19/21 02:40 White Blood Count 7.9 x10^3/uL (4.0-11.0) Red Blood Count 2.69 x10^6/uL (4.30-5.70) Hemoglobin 8.4 g/dL (13.0-17.5) Hematocrit 24.8 % (39.0-53.0) Mean Corpuscular Volume 92 fL (79-100) Mean Corpuscular Hemoglobin 31 pg (25-35) Mean Corpuscular Hemoglobin Concent 34 g/dL (31-37) Red Cell Distribution Width 14.3 % (11.5-14.5) Platelet Count 264 x10^3/uL (140-400) Comment Review of Relevant I have reviewed the following items carisa (where applicable) has been applied. Justifications for Admission Other Justification VIDYA GAMEZ MD Aug 19, 2021 12:11
--- NOTE | 2021-08-19 14:00 | NUR ---
[facility] following. Discussed with RN, updates faxed to [facility]. RN notified of need for COVID swab for pt to return to facility. Pt apparently refused the swab this morning. [facility] will continue to follow. Addendum: 08/19/21 at 1602 by GLO VELAZQUEZ Discharge orders for pt to return to [facility] phoned and faxed. Transportation set up by M[facility]US for [phone] via [employer]. RN and facility notified.
[2021-08-19 15:00] VITALS: BP 112/68
[2021-08-19] MEDS ORDERED: PANT40TA77 PO (15:40)
--- NOTE | 2021-08-19 15:41 | SNU/HH DC ---
DISCHARGE ORDERS DISCHARGE INFORMATION: DISCHARGE DATE: Aug 19, 2021 CONDITION ON DISCHARGE: Guarded CODE STATUS: Code Status: DNR/DNI POST DISCHARGE ORDERS: ACTIVITY ORDERS: Activity as tolerated FOLLOW-UP: PHYSICIAN FOLLOW-UP: PCP within 2 weeks of discharge ADDITIONAL FOLLOW-UP: Gastroenterology [facility] for EGD LAB ORDERS FOR FOLLOW-UP: CBC, CMP DISCHARGE MEDICATIONS: Home Meds Active Scripts Pantoprazole Sodium (PANTOPRAZOLE SODIUM ) 40 Mg Tablet., 40 MG PO DAILYAC for GERD for 30 Days, #30 TAB.SR 2 Refills Prov:VIDYA GAMEZ MD 08/19/21 Reported Medications Guaifenesin/Dextromethorphan (Robitussin Cough-Chest Dm Liq) 237 Ml Liquid, 237 ML PO PRN Q4HRS PRN for COUGH, LIQUID 08/16/21 [Phosphate Enema] No Conflict Check, [place] PRN DAILY PRN for CONSTIPATION 08/16/21 Magnesium Hydroxide (MILK OF MAGNESIA) 400 Mg/5 Ml Oral.susp, 400 MG PO PRN DAILY PRN for CONSTIPATION, MISC 08/16/21 Loperamide Hcl (LOPERAMIDE) 2 Mg Tablet, 1 TAB PO Q4HRS for loose stool for 30 Days, #180 TAB 0 Refills 08/16/21 Bisacodyl (BISACODYL) 10 Mg Supp.rect, 30 ML PO PRN DAILY PRN for CONSTIPATION, SUPP.RECT 0 Refills 08/16/21 Levothyroxine Sodium (SYNTHROID) 125 Mcg Tablet, 1 TAB PO DAILY for HYPOTHYROID, #30 TAB 5 Refills 08/16/21 Ascorbic Acid (Vitamin C) 500 Mg Capsule, 1000 MG PO DAILY for supplement, CAP 07/10/20 Acetaminophen (TYLENOL) 325 Mg Tablet, 650 MG PO PRN Q4-6HRS PRN for pain control, TAB 07/10/20 Trazodone Hcl (TRAZODONE HCL) 50 Mg Tablet, 25 MG PO HS for depressive disorder, TAB 07/10/20 Tamsulosin Hcl (FLOMAX) 0.4 Mg Cap.er.24h, 0.8 MG PO DAILY for bph, TAB 07/10/20 Sucralfate (SUCRALFATE) 1 Gm Tablet, 1 GM PO TID for treat ulcers, TAB 07/10/20 Pantoprazole Sodium (PROTONIX) 20 Mg Tablet.dr, 40 MG PO BID for gerd, TAB 07/10/20 Mirtazapine (MIRTAZAPINE) 30 Mg Tablet, 1 TAB PO QHS for depressive disorder, #30 TAB 2 Refills 07/10/20 Ziprasidone Hcl (GEODON) 40 Mg Capsule, 60 MG PO BID for bipolar disorder, CAP 07/10/20 Ferrous Sulfate (FERROUS SULFATE) 325 Mg Tablet, 325 MG PO DAILY for anemia, TAB 07/10/20 Duloxetine Hcl (CYMBALTA) 60 Mg Capsule.dr, 60 MG PO DAILY for depressive disorder, CAP 07/10/20 Peg 400/Hypromellose/Glycerin (ARTIFICIAL TEARS DROPS) 15 Ml Drops, 1 DROP OD QID for dry eye for 30 Days, #15 ML 0 Refills 07/10/20 Discontinued Reported Medications Cephalexin (CEPHALEXIN) 500 Mg Tablet, 1000 MG PO BID for INGUINAL ABCESS AND UTI, #20 TAB 08/16/21 VIDYA GAMEZ MD Aug 19, 2021 15:41
--- NOTE | 2021-08-19 18:41 | NUR ---
Patient discharged to [facility] transported by assisted personal by wheelchair
== END 2021-08-19 18:35 | DRG 378 ==
LOC: 6 SOUTH 03:55 → 4 NORTH 08-17 20:30
PROVIDERS: ADMIT Internal Medicine; ATTEND Internal Medicine
PROC: 30233N1 Transfusion of Nonautologous Red Blood Cells into Peripheral Vein, Percutaneous Approach (ICD-10-PCS; principal; 2021-08-17)
DX: K92.2 Gastrointestinal hemorrhage, unspecified (principal); D62 Acute posthemorrhagic anemia; F31.30 Bipolar disorder, current episode depressed, mild or moderate severity, unspecified; F03.90 Unspecified dementia, unspecified severity, without behavioral disturbance, psychotic disturbance, mood disturbance, and anxiety; F41.9 Anxiety disorder, unspecified; I10 Essential (primary) hypertension; K22.0 Achalasia of cardia; K22.70 Barrett's esophagus without dysplasia; K21.9 Gastro-esophageal reflux disease without esophagitis; Z88.8 Allergy status to other drugs, medicaments and biological substances; Z66 Do not resuscitate
CPT/HCPCS: 36415; 36430; 80048; 82607; 83540; 83550; 83880; 85014; 85018; 85025; 85027; 86850; 86900; 86901; 86920; C9113; J2270; J2405; J3420; J3490; J7120; P9016; G0378